=== PATIENT | male | born 1965 | race Caucasian/White ===

== ENCOUNTER 2020-09-27 06:58 | Observation (INO) ==
[2020-09-27] MEDS ORDERED: 0.9 % Sodium Chloride 1,000 ML IV ONE (07:41)
[2020-09-27] MEDS ORDERED: Naloxone 0.4 MG/ML INJ IVP ONE (07:47)
[2020-09-27 07:56] LABS: Basophils # 0.1 K/mcL (0.0-0.2); Basophils % 0.5 %; Eosinophils # 0.1 K/mcL (0.0-0.6); Eosinophils % 0.7 %; Hematocrit 44.9 % (37.5-50.1); Hemoglobin 13.9 g/dL (12.9-16.9); Immature Granulocytes % 0.4 % (0-4); Lymphocytes # 1.2 K/mcL (0.6-4.6); Lymphocytes % 11.2 %; Mean Corpuscular Hemoglobin 29.3 pg (28.0-33.3); Mean Corpuscular Volume 94.7 fL (83.0-100.0); Monocytes # 0.5 K/mcL (0.0-1.3); Monocytes % 4.2 %; Neutrophils # 8.9 K/mcL (1.6-8.9); Platelet Count 280 K/mcL (140-400); Red Blood Count 4.74 M/mcL (4.19-5.50); Red Cell Distribution Width 12.2 % (11.5-14.5); White Blood Count 10.7 K/mcL (4.3-11.1)
[2020-09-27 08:16] LABS: Acetaminophen < 10 mcg/mL (10-20); BUN/Creatinine Ratio 16 (6-26); Blood Urea Nitrogen 17 mg/dL (6-20); Calcium 9.3 mg/dL (8.6-10.3); Carbon Dioxide 34 mEq/L (23-29); Chloride 102 mEq/L (98-107); Glucose 111 mg/dL (70-105); Osmolality,Calculated 290 (280-300); Potassium 3.7 mEq/L (3.5-5.1); Salicylate < 2.5 mg/dL (15.0-30.0); Sodium 139 mEq/L (136-145); eGFR For African Americans > 60 (> 60); eGFR For Non-African Americans > 60 (> 60)
[2020-09-27 08:58] LABS: Bilirubin,Urine Negative (Negative); Blood,Urine Negative (Negative); Clarity,Urine Clear (Clear); Color,Urine Light-Yellow (Yellow); Glucose,Urine (UA) Normal (Normal); Ketones,Urine Negative (Negative); Leukocyte Esterase,Urine Trace (Negative); Mucus,Urine Few per lpf (None-Few); Nitrite,Urine Negative (Negative); PH,Urine 6.5 pH Units (5.0-8.0); Protein,Urine Trace mg/dL (Neg-Trace); Specific Gravity,Urine 1.021 (1.010-1.025); WBC,Urine 15-30 per hpf (0-3)
[2020-09-27] MEDS ORDERED: cefTRIAXone 1,000 MG in Water for inj. (sterile) 10 ML IVP ONE (09:15)
[2020-09-27] MEDS ORDERED: Azithromycin 500 MG in 0.9 % Sodium Chloride 250 ML IVPB ONE (09:15)
[2020-09-27 10:27] LABS: ABG Base Excess 3 mEq/L (-2 to 3); ABG HCO3 30 mEq/L (21-27); ABG Oxygen Saturation 93 % (95-98); ABG PCO2 53 mmHg (35-45); ABG PH 7.36 pH Units (7.32-7.45); ABG PO2 71 mmHg (85-104); ABG TCO2 31 mEq/L (20-26)
[2020-09-27] MEDS ORDERED: Naloxone 0.4 MG/ML INJ IVP PRN (10:35)
[2020-09-27] MEDS ORDERED: Ondansetron 4 MG/2 ML VIAL IVP PRN (10:35)
[2020-09-27] MEDS ORDERED: *HR* Dextrose 50 % in Water (Vial) 50 ML VIAL IVP PRN (10:35)
[2020-09-27] MEDS ORDERED: Dextrose Gel 15 GM/37.5 ML TUBE PO PRN ×2 (10:35)
[2020-09-27] MEDS ORDERED: Ketorolac 15 MG/ML VIAL IVP PRN (10:35)
[2020-09-27] MEDS ORDERED: D5% in Water 1,000 ML IVC PRN (10:35)
[2020-09-27] MEDS ORDERED: 0.9 % Sodium Chloride 1,000 ML IVC SCH (10:45)
[2020-09-27 11:30] LABS: Amphetamine Screen,Urine Positive ng/mL (Cutoff=1000); Barbiturate Screen,Urine Negative ng/mL (Cutoff=200); Benzodiazepines Screen,Urine Negative ng/mL (Cutoff=200); Cannabinoid Screen,Urine Positive ng/mL (Cutoff = 50); Cocaine Screen,Urine Positive ng/mL (Cutoff= 300); Opiate Screen,Urine Negative ng/mL (Cutoff=300); Phencyclidine Screen,Urine Negative ng/mL (Cutoff=25)
[2020-09-27] MEDS ORDERED: Insulin LISPRO 300 UNITS/3 ML VIAL SUBQ SCH ×2 (12:00→21:00)
[2020-09-27] MEDS: Ringers Solution, Lactated 1,000 ML IVC SCH (13:09)
[2020-09-27] MEDS: levoFLOXacin 750 MG/150 ML 750 MG/150 ML BAG IVPB SCH (16:06)
[2020-09-27] MEDS: Insulin LISPRO 300 UNITS/3 ML VIAL SUBQ SCH (16:11)
[2020-09-27] MEDS ORDERED: Isovue-370 500 ML BOTTLE IVP ONE (16:50)
[2020-09-27] MEDS ORDERED: Td (TENIVAC) Vaccine 0.5 ML VIAL IM ONE (17:26)
[2020-09-27] MEDS ORDERED: Tdap (Boostrix) Vaccine 0.5 ML SYRINGE IM ONE (17:35)
[2020-09-27] MEDS: *HR* Enoxaparin 100 MG/ML SYRINGE SQ SCH (17:50)
[2020-09-27] MEDS: Vancomycin 1,500 MG/265 ML IV.SOLN IVPB SCH (17:50)
[2020-09-28] MEDS: Ringers Solution, Lactated 1,000 ML IVC SCH (00:23)
[2020-09-28 02:23] LABS: Hematocrit 43.2 % (37.5-50.1); Mean Corpuscular HGB Conc 32.4 g/dL (31.6-35.5); Mean Corpuscular Hemoglobin 30.3 pg (28.0-33.3); Mean Corpuscular Volume 93.5 fL (83.0-100.0); Mean Platelet Volume 10.1 fL (9.4-12.4); Platelet Count 197 K/mcL (140-400); Red Blood Count 4.62 M/mcL (4.19-5.50); Red Cell Distribution Width 12.2 % (11.5-14.5); White Blood Count 9.1 K/mcL (4.3-11.1)
[2020-09-28 03:09] LABS: BUN/Creatinine Ratio 16 (6-26); Blood Urea Nitrogen 12 mg/dL (6-20); Calcium 8.7 mg/dL (8.6-10.3); Carbon Dioxide 27 mEq/L (23-29); Chloride 103 mEq/L (98-107); Glucose 135 mg/dL (70-105); Magnesium 1.8 mg/dL (1.6-2.6); Osmolality,Calculated 282 (280-300); Potassium 4.7 mEq/L (3.5-5.1); Sodium 135 mEq/L (136-145); eGFR For African Americans > 60 (> 60); eGFR For Non-African Americans > 60 (> 60)
[2020-09-28] MEDS: Vancomycin 1,500 MG/265 ML IV.SOLN IVPB SCH (05:10)
[2020-09-28] MEDS: *HR* Enoxaparin 100 MG/ML SYRINGE SQ SCH (05:10)
[2020-09-28] MEDS ORDERED: *HR* Enoxaparin 40 MG/0.4 ML SYRINGE SQ SCH (07:00)
[2020-09-28] MEDS: Insulin LISPRO 300 UNITS/3 ML VIAL SUBQ SCH (08:06)
[2020-09-28] MEDS: levoFLOXacin 750 MG/150 ML 750 MG/150 ML BAG IVPB SCH (08:19)
[2020-09-28 11:33] VITALS: BP 161/94
== END 2020-09-28 12:31 | disposition home or self-care (01) ==
LOC: EMEROOARM 06:58 → 2NNU 06:58 → SUATTDRO 10:49 → 2NNU 11:37
PROVIDERS: ADMIT Internal Medicine; ATTEND Internal Medicine